=== PATIENT | male | born 1965 | race Caucasian/White ===

== ENCOUNTER 2016-04-22 10:14 | Day surgery (SDC) | payer OTHER ==
[2016-04-19 11:28] LABS: APPEARANCE,URINE CLEAR; BILIRUBIN,URINE NEGATIVE (NEGATIVE); GLUCOSE, URINE NEGATIVE (NEGATIVE); KETONES,URINE NEGATIVE (NEGATIVE); LEUKOCYTE ESTERASE,URINE NEGATIVE (NEGATIVE); NITRITE,URINE NEGATIVE (NEGATIVE); PROTEIN,URINE NEGATIVE (NEGATIVE); URINE SPECIFIC GRAVITY 1.014; UROBILINOGEN,URINE NEGATIVE mg/dL (<2.0)
[2016-04-19 11:38] LABS: HEMATOCRIT 44.6 % (37.9-51.0); HGB HCT DIFFERENCE 0.4; MEAN CORPUSCULAR HEMOGLOBIN 29.7 pg (27.0-33.4); MEAN CORPUSCULAR HGB CONC 33.6 g/dL (32.0-36.0); MEAN CORPUSCULAR VOLUME 88 fl (80-97); RED BLOOD COUNT 5.05 10^6/uL (4.35-5.55); RED CELL DISTRIBUTION WIDTH 13.3 % (11.5-14.0); WHITE BLOOD COUNT 6.1 10^3/uL (4.0-10.5)
[2016-04-19 12:07] LABS: ANION GAP 11 (5-19); BLOOD UREA NITROGEN 16 mg/dL (7-20); CALCIUM 8.9 mg/dL (8.4-10.2); CARBON DIOXIDE 31 mmol/L (22-30); CHLORIDE 100 mmol/L (98-107); CREATININE RESULT 0.95 mg/dL (0.52-1.25); GLUCOSE 100 mg/dL (75-110); POTASSIUM 4.3 mmol/L (3.6-5.0); SODIUM 141.8 mmol/L (137-145)
--- NOTE | 2016-04-19 16:33 | EKG REPORT ---
SEVERITY:- ABNORMAL ECG - SINUS RHYTHM BORDERLINE LEFT AXIS DEVIATION NONSPECIFIC ST-T CHANGES- INFERIOR LEADS : Confirmed by: Anshu Peres MD 19-Apr-2016 16:32:09
[~2016-04-22 10:14] MED LIST: CEFAZOLIN 2 GM/D5W RTU 2 GM/50 ML RTUPB IV PRN; LIDOCAINE 0.5% INJ-PF (5 MG/ML) 50 ML SDV INJ PRN; RINGERS SOLUTION,LACTATED 1,000 ML IV PRN
[2016-04-22] MEDS ORDERED: METOCLOPRAMIDE HCL INJ/PF 10 MG/2 ML SDV ONE (10:37)
[2016-04-22] MEDS ORDERED: SUCCINYLCHOLINE CHLORIDE INJ 200 MG/10 ML VIAL ONE (10:37)
[2016-04-22] MEDS ORDERED: GLYCOPYRROLATE INJ 0.4 MG/2 ML VIAL ONE (10:37)
[2016-04-22] MEDS ORDERED: PHENYLEPHRINE HCL INJ/PF 10 MG/1 ML SDV ONE (10:37)
[2016-04-22] MEDS ORDERED: ONDANSETRON HCL INJ/PF 4 MG/2 ML SDV ONE (10:37)
[2016-04-22] MEDS ORDERED: NEOSTIGMINE METHYLSULFATE 10 MG/10 ML VIAL ONE (10:37)
[2016-04-22] MEDS ORDERED: ROCURONIUM BROMIDE INJ 50 MG/5 ML VIAL IV ONE (10:37)
[2016-04-22] MEDS ORDERED: EPINEPHRINE INJ 30 MG/30 ML VIAL ONE (12:13)
[2016-04-22] MEDS ORDERED: BUPIVACAINE HCL 0.25 % INJ/PF (2.5 MG/1 ML) 30 ML VIAL ONE (12:14)
[2016-04-22] MEDS ORDERED: FENTANYL CITRATE INJ/PF 250 MCG/5 ML AMPULE ONE ×2 (12:21)
[2016-04-22] MEDS ORDERED: ACETAMINOPHEN 100 ML IV ONE (12:22)
[2016-04-22] MEDS ORDERED: PROPOFOL INJ 200 MG/20 ML VIAL IV ONE (12:22)
[2016-04-22] MEDS ORDERED: MIDAZOLAM 2 MG/2 ML INJ ONE (12:22)
[2016-04-22] MEDS ORDERED: MORPHINE SULFATE 10 MG/ML INJ ONE (12:23)
--- NOTE | 2016-04-22 14:51 | Operative Report ---
Operative Report DATE OF SURGERY: 04/22/16 PREOPERATIVE DIAGNOSIS: Right rotator cuff tear and SLAP tear POSTOPERATIVE DIAGNOSIS: Same OPERATION: Right shoulder arthroscopy with rotator cuff repair and subpectoralis biceps tenodesis SURGEON: LAI ROBISON ANESTHESIA: GA TISSUE REMOVED OR ALTERED: None COMPLICATIONS: None ESTIMATED BLOOD LOSS: 20 mL PROCEDURE: DESCRIPTION OF PROCEDURE: Patient was brought to the operating room placed in supine position. After successfully induced and intubated the patient patient was placed in the beachchair position the head and endotracheal tube was secured appropriately. The right shoulder was prepped and draped in a normal surgical fashion. A timeout was done identifying the right shoulder as the correct site. After inflating the glenohumeral joint with sterile saline solution an 11 blade was used to establish the posterior portal. The arthroscope was introduced and return of fluid was seen showing that we successfully penetrated the glenohumeral joint. With the use of spinal needle we're able to sonya the anterior portal and using an 11 blade able to establish anterior portal. A cannula was introduced through the anterior portal. At this point diagnostic scope was done. Probe was introduced and patient had a large type II SLAP tear. I also noticed patient had a very small pinhole full- thickness rotator cuff tear. A lateral portal was established 11 blade. 4.0mm shaver was introduced and was used to go through the small tear and prepare and clean the remaining diseased tendon, I also used the shaver and turned it into. The tear for the bone for preparation of anchor placement. Once I was satisfied with the preparation I then redirected my scope into the subacromial space. I was able to visualize the tear and subacromial space. I cleaned the edges of the tear with a shaver. A percutaneous incision was then just adjacent to the acromion on the lateral aspect. Through this percutaneous hole the awl was used to prepare the hole for an anchor. [place] was percutaneously sent flushed with the bone just adjacent to the articular margin.. Sutures were passed through the anterior portal for proper suture management. With the use of the scorpion and I proceeded to pass the sutures through the rotator cuff tendon with proper suture management was able to pass the strands either through percutaneous hole or the anterior portal. Once I was satisfied with placement of all my sutures I then proceeded to do my arthroscopic knots. At this point the strands were used to do our lateral row. Bicomposite show out was used and the lateral aspect of the humerus was then cleaned off with a shaver and electrocautery. Once identified once I was replacement I proceeded to use my awl to do my hole. This this point the sutures were adequately tensioned and subluxed for inserted and secured securing and increasing the footprint of the rotator cuff repair. Remaining strands were cut with the arthroscopic cutter. Final pictures were taking showing my repair. At this point fluid from the shoulder was removed camera and instruments were all removed. At this point I turned my attention to the biceps tenodesis portion. I did a 1 inch incision on the upper arm just adjacent to the axillary crease. Blunt dissection and Metzenbaum scissors were used to expose the fascia isabela which then was cut with a scissors and a 15 blade. I was able then to pull the long head of biceps with a 90 angle and pulled through my incision. I used a fiber loop then to secure the tendon at the muscular tendinous junction and 2 cm distal to it. The remaining tendon was cut. I placed Homans on each side of the humerus to protect vital structures and I was able to palpate the inferior aspect of the bicipital groove and placed my spade tip guidepin to drill through the proximal cortex. I fed the FiberWire strands through the subpectoralis titanium button. I secured the ball and then into the predrilled hole and flipped the button successfully. I used a free needle then to pass one of the strands through the biceps one more time to lock and secure the tendon down to the cortex. Once I pulled and plan the biceps down I then through half hitch knots to secure urine further. I used FiberWire scissors to cut the remaining strands. I proceeded to close my portal sites with 3-0 nylon. Xeroform 4 x 4 dressing followed by ABDs pads and Medipore tape was applied. Patient was placed in a sling and returned to supine position where he was successfully extubated and taken to PACU in stable condition.
[2016-04-22] MEDS ORDERED: OXYCODONE-ACETAMINOPHEN 5-325 MG TABLET PO PRN ×2 (14:53)
--- NOTE | 2016-04-22 14:53 | PDOC DISCHARGE SUMMARY ---
Discharge Summary (SDC) - Discharge Final Diagnosis: Status post rotator cuff repair and biceps tenodesis Date of Surgery: 04/22/16 Discharge Date: 04/22/16 Condition: Good Treatment or Instructions: Patient is instructed to follow up in 10-14 days. Patient instructed to remove dressing in 4 days then can shower and apply Band- Aids as needed. Patient to wear sling for comfort but okay to remove for shower and pendulum exercises. Pendulum exercises are instructed to be done 3 times a day ideally with breakfast, lunch, dinners and showers. Patient instructed to call if there is any signs of redness or drainage fevers or chills. Prescriptions: Oxycodone HCl/Acetaminophen [Percocet 5-325 mg Tablet] 1 - 2 tab PO ASDIR PRN # 60 tablet PRN Reason: Discharge Diet: As Tolerated Respiratory Treatments at Home: Deep Breathing/Coughing Discharge Activity: No Lifting/Push/Pulling Home Care Assistance: None Needed Report the Following to Your Physician Immediately: Shortness of Breath, Vomiting, Fever over 101 Degrees, Unusual Bleeding, Redness, Swelling, Drainage- Yellow, Drainage-Green, Drainage-Foul Smelling
[2016-04-22 16:42] VITALS: BP 114/78
== END 2016-04-22 16:40 | disposition home or self-care (01) ==
LOC: OROUT 10:14
PROVIDERS: ATTEND Orthopaedic Surgery
PROC: 0LM14ZZ Reattachment of Right Shoulder Tendon, Percutaneous Endoscopic Approach (ICD-10-PCS; 2016-04-22)
PROC: 0LM30ZZ Reattachment of Right Upper Arm Tendon, Open Approach (ICD-10-PCS; principal; 2016-04-22 12:30)
DX: M75.121 Complete rotator cuff tear or rupture of right shoulder, not specified as traumatic (principal); S43.432S Superior glenoid labrum lesion of left shoulder, sequela; X58.XXXS Exposure to other specified factors, sequela; Z79.899 Other long term (current) drug therapy; G47.33 Obstructive sleep apnea (adult) (pediatric); K21.9 Gastro-esophageal reflux disease without esophagitis; F43.10 Post-traumatic stress disorder, unspecified
CPT/HCPCS: 93005; 36415; 85027; 80048; 81001; 71020; 93010; 24340; 29827; C1713; J2250; J3490; J0171; J3010; J2765; J2270; J2370; J0330; J2405; J2704; J0690; J0131; 1630